=== PATIENT | female | born 1955 | race Caucasian/White ===

== ENCOUNTER → 2018-08-10 | Outpatient (CLI) | payer OTHER ==
[~2018-08-10] MED LIST: ADULT LOW DOSE81 MG PO; APAP500 PO; ASCRIPTIN PO; ASPIR 8181 MG PO; ATIVAN0.5 MG PO; ATIVAN1 MG PO; CARDIZEM CD120 MG PO; COLACE100 MG PO; ELIQUIS5 MG PO; EZETIMIBE; HYDROCODONE-APA1 TA1 PO; IBUPROFEN 600600 M1 PO; KLOR-CON 1010 MEQ PO; LEVAQUIN 500 M500 M2 PO; LIDODERM 5%1 PATC1 TOP; LIDODERM 5%1 PATC1 TRANSDERM; LISINOPRIL; LISINOPRIL-HCT1 EAC2 PO; MULTIPLE VITAM1 EAC1 PO; MULTIPLE VITAM1 EAC2 PO; OMEGA-31000 MG PO; ONDANSETRON HCL4 M2 PO; OXYBUTYNIN 5 MG5 M2 PO; ROXICODONE5 M2 PO; RYTHMOL SR325 MG PO; SERTRALINE HCL50 MG PO; THERA-M CAPLET1 EAC2 PO; THERAGRAN M PO; ZOFRAN ODT4 MG DISSOLVE; ZOLOFT PO; [UNRECOGNIZED DRUG - CODE] PO
[2018-08-10 16:36] LABS: HEMOGLOBIN 14.3 gm/dL (12.0-15.0); MCHC 33.2 g/dL (28.0-37.0); MCV 90.4 fL (80.0-100.0); MPV 7.7 fl. (7.2-11.1); RBC 4.75 mil/uL (4.20-5.00); RDW-CV 13.6 % (10.5-14.5); WBC 8.9 thou/uL (4.0-11.0)
[2018-08-10 16:52] LABS: CALCIUM 8.5 mg/dL (8.5-10.1); CREATININE 0.7 mg/dL (0.6-1.3); POTASSIUM 4.1 mmol/L (3.5-5.1)
== END ==
LOC: M.LAB 15:56
PROVIDERS: Podiatrist
DX: Z01.818 Encounter for other preprocedural examination (principal); J98.11 Atelectasis; J98.4 Other disorders of lung; M20.12 Hallux valgus (acquired), left foot; I10 Essential (primary) hypertension; I48.91 Unspecified atrial fibrillation; E78.00 Pure hypercholesterolemia, unspecified

== ENCOUNTER → 2019-08-18 | Outpatient (CLI) | payer OTHER ==
--- NOTE | 2019-08-23 16:30 | SLEEP ---
[address] [address] SLEEP STUDY REPORT Name: NANDO RODRIGUEZROHINI Prather Room: [facility]#: [id number] Admission: 08/18/19 Attend Phys: Kristal Merritt MD, Discharge: Date of : 59 Report #: [id number] THIS REPORT FOR: //name// CC: Coleman Merritt MD [facility] Kristal Jane This study has been reviewed in its entirety by a board certified sleep specialist DATE OF SERVICE: 08/18/2019 HOME SLEEP STUDY ATTENDING PHYSICIAN: Coleman Merritt MD The patient is a 64-year-old who underwent a home sleep study performed by [facility]. Total recording time was 505 minutes. The patient's [place] score was 9. During the night study, the patient had 30 obstructive apneas, 2 central and no mixed apneas, and 103 hypopneas. The patient's apnea hypopnea index was 16 per hour with a supine index of 17 per hour. Nocturnal oximetry study revealed an average oxygen saturation of 92% with the lowest of 77%. A 36 minutes were spent in oxygen saturation of less than 90% and 6.5 minutes with saturation of less than 85%. Mean heart rate 64 beats per minute with a maximum of 113 beats per minute. IMPRESSION: 1. Moderate sleep apnea-hypopnea syndrome at an AHI of 16 per hour. 2. Nocturnal hypoxia secondary to obstructive sleep apnea. RECOMMENDATIONS: 1. The patient would benefit from treatment of sleep apnea with CPAP. This can be done in-lab versus home auto-titration study. 2. Once the patient is optimally treated with CPAP, then follow up in 4-6 weeks to assess compliance with CPAP and to document clinical improvement. 3. Avoid [employer] ASSISTANT depressants. 4. Weight loss to the ideal body [place] [address] SLEEP STUDY REPORT Name: JENNIFERESTHER Room: [facility]#: [id number] Admission: 08/18/19 Attend Phys: Kristal Merritt MD, Discharge: Date of : 59 Report #: [id number] 5. Cautioned regarding driving until symptoms of sleep apnea have resolved with the above recommendations. <ELECTRONICALLY SIGNED> By: Elie Vivar MD 08/23/19 1630 1432 [id number] Vivar MD /nt
== END ==
LOC: M.SLEEPLAB 10:48
DX: G47.33 Obstructive sleep apnea (adult) (pediatric) (principal); G47.34 Idiopathic sleep related nonobstructive alveolar hypoventilation

== ENCOUNTER → 2019-09-12 | Outpatient (CLI) | payer OTHER | LOC: M.RAD 09:55 | DX: Z12.31 Encounter for screening mammogram for malignant neoplasm of breast (principal) ==

== ENCOUNTER → 2019-09-25 | Outpatient (CLI) | payer OTHER | LOC: M.RAD 09-18 13:15 → M.ULTRA 09-21 10:00 → M.RAD 09-21 10:00 | DX: N63.10 Unspecified lump in the right breast, unspecified quadrant (principal); N63.20 Unspecified lump in the left breast, unspecified quadrant; R92.1 Mammographic calcification found on diagnostic imaging of breast ==

== ENCOUNTER → 2019-10-31 | Outpatient (CLI) | payer OTHER ==
--- NOTE | 2019-11-03 07:46 | SLEEP ---
[address] [address] SLEEP STUDY REPORT Name: JENNIFERESTHER L Room: [facility]#: [id number] Admission: 10/31/19 Attend Phys: Elie Vivar MD Discharge: Date of : 59 Report #: [id number] THIS REPORT FOR: //name// CC: Elie Jane This study has been reviewed in its entirety by a board certified sleep specialist DATE OF SERVICE: 10/31/2019 ATTENDING PHYSICIAN: Elie Vivar MD The patient is 64 years old who weighs 225 pounds with a BMI of 38.6. The patient's [place] score was 12. The patient had a home sleep study and was found to have moderate JOHN. The patient returned for in-lab CPAP titration study. During the night study, the patient spent 453 minutes in bed and slept for 250 minutes with a low sleep efficiency of 55%. Sleep latency was 79.7 minutes with a REM latency of 174 minutes. Sleep architecture showed normal stage 1 sleep, increased stage 2 sleep, normal slow wave and slightly reduced REM sleep, which was 15% of the total sleep time. EKG monitoring revealed an average heart rate of 60 beats per minute. No sustained arrhythmias observed. Mild PLMs seen at an index of 11.5 per hour and only 2 per hour caused EEG arousals. The patient was started on CPAP at a pressure of 5 cm water and titrated up to 10 cm of water. Limited sleep was seen at 10 cm of water. However, at a pressure of 9 cm water, the patient slept for 117 minutes including 13.6 minutes of supine REM sleep. The patient's AHI was reduced to 1 per hour. Oxygen saturations remained above 91%. IMPRESSION: 1. Moderate sleep apnea-hypopnea syndrome diagnosed by previous home sleep study. 2. 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 This does not need to be treated. RECOMMENDATIONS: 1. CPAP at 9 cm water completely eliminated the patient's sleep apnea and should be used on a nightly basis. 2. Follow up in 4-6 weeks to assess compliance with CPAP [place] [address] SLEEP STUDY REPORT Name: NANDO RODRIGUEZROHINI Prather Room: [facility]#: [id number] Admission: 10/31/19 Attend Phys: Elie Vivar MD Discharge: Date of : 59 Report #: [id number] clinical improvement. 3. Weight loss is advised. 4. Avoid H[employer] depressants. 5. Cautioned regarding driving until symptoms of sleep apnea resolve with the use of CPAP. <ELECTRONICALLY SIGNED> By: Elie Vivar MD 11/03/19 0746 1843 [id number] Vivar MD /nt
== END ==
LOC: M.SLEEPLAB 20:00
DX: G47.30 Sleep apnea, unspecified (principal); G47.33 Obstructive sleep apnea (adult) (pediatric)